=== PATIENT | male | born 1975 | race Caucasian/White ===

== ENCOUNTER 2018-06-21 10:13 | Outpatient (CLI) | payer BC ==
--- NOTE | 2018-06-21 11:52 | RAD ---
FOUR VIEWS LEFT KNEE: INDICATION: Left knee pain. No known injury. FINDINGS: There is mild joint capsular distention. No fracture or dislocation. No significant arthropathy. IMPRESSION: No acute osseous abnormality of the left knee. POS: [facility]
== END 2018-06-21 10:14 | disposition home or self-care (01) ==
LOC: SCSRAD 10:13
PROVIDERS: ATTEND Nurse Practitioner Family
DX: M25.562 Pain in left knee (principal)